=== PATIENT | female | born 1990 | race Caucasian/White ===

== ENCOUNTER 2017-11-11 10:32 | Emergency (ER) | payer MEDICAID, SELFPAY ==
[2017-11-11 10:32] VITALS: BP 131/95; PULSE 85; RESP 16; TEMP 37.3; O2SAT 98; BMI 24.7
--- NOTE | 2017-11-11 11:10 | ED.VISSUMM ---
- ER Visit Summary Date of Service: 11/11/17 Chief Complaint: [] Laceration to back History of Present Illness: The patient is a 27 F [] complaining of laceration to the right back/scapular area after slipping and falling in the bathroom at a local hotel. She reportedly grabbed the shower curtain to brace herself and pulled down the curtain kimberly that struck her in the back causing a laceration. She denies any other injury at this time. She is tearful in the room. Physical Examination: [] 4 cm full-thickness laceration to the right scapula area of the back. No bony tenderness below. Remainder of physical exam is unremarkable. Test Results: [] None. Emergency Department Course and Treatment: [] Patient had the area cleaned with saline and Shur-Clens. Anesthetized locally with 1% lidocaine. #3 4.0 nylon sutures were utilized to approximate the wound. Patient tolerated the procedure well. Patient reports her tetanus is up-to-date. Treatment Plan: [] Follow-up with PCP or emergency department for suture removal in 10 days. Disposition: [] Discharge, stable. Impression: [] Laceration repair, 4 cm Laceration repair by ED physician This note was generated with [employer] dictation software. It may contain incorrect words, spelling, and punctuation that were not noted in review of the chart prior to signing ED Disposition - Plan for ED Patient: Chief Complaint: Laceration Referrals: Care Physician,No Primary [Primary Care Provider] -
--- NOTE | 2017-11-11 11:18 | ED.DEP ---
ED Disposition - Plan for ED Patient: Disposition: Home or Assisted Living Chief Complaint: Laceration Instructions: ED Laceration All Referrals: Care Physician,No Primary [Primary Care Provider] - Additional Instructions: Have sutures removed in 10 days.
== END 2017-11-11 11:27 | disposition home or self-care (01) ==
PROVIDERS: Emergency Provider Emergency Medicine
DX: S41.011A Laceration without foreign body of right shoulder, initial encounter (principal); W01.0XXA Fall on same level from slipping, tripping and stumbling without subsequent striking against object, initial encounter; Y93.9 Activity, unspecified; Y92.59 Other trade areas as the place of occurrence of the external cause
CPT/HCPCS: 12002; 99284

== ENCOUNTER → 2018-05-30 13:35 | Outpatient (CLI) | payer MEDICAID, SELFPAY ==
[2018-05-30 15:22] LABS: Absolute Lymphocyte Count 1.57 X10^3/ul (0.83-4.51); Absolute Neutrophil Count 3.9 X10^3/uL (2.0-7.7); Basophil# 0.02 X10^3/uL; Basophil% 0.3 % (0-1); Eosinophil# 0.02 X10^3/uL; Eosinophils% 0.3 % (0-5); Hematocrit 43.9 % (37-47); Hemoglobin 14.1 g/dl (12.0-15.0); Lymphocyte # 1.57 X10^3/ul (4.0); Lymphocyte % 26.3 % (19-41); Mean Corp Hgb Conc 32.1 g/gl (32-36); Mean Corpuscular Hgb 31.3 pg (27.0-32.0); Mean Corpuscular Volume 97.6 fL (81-99); Mean Platelet Vol. 11.5 fl (6.2-12.0); Monocyte# 0.48 X10^3/uL; Neutrophil # 3.88 X10^3/uL (2.7-7.7); Neutrophil % 64.9 % (47-70); POSITIVE COUNT NO; POSITIVE DIFFERENTIAL NO; POSITIVE MORPHOLOGY NO; Platelet Count 255 K/mm3 (150-450); RBC Distribution Width SD 48.2 fl (35.1-43.9)
[2018-05-30 16:09] LABS: ALB/GLOB Ratio 0.8 RATIO (0.9-2.4); AST(SGOT) 18 U/L (15-37); Alanine Aminotransfer ALT/SGPT 47 U/L (13-56); Albumin, Serum 3.8 g/dL (3.2-5.0); Alkaline Phosphatase 90 U/L (45-117); Anion Gap 9 (5-15); BUN 15 mg/dL (7-18); BUN/Creat Ratio 18.9 RATIO (10-20); Calcium,Total 9.5 mg/dL (8.5-10.1); Chloride 105 mmol/L (98-107); Creatinine, Serum 0.79 mg/dL (0.55-1.02); EST Glomerular Filtration Rate 92 mL/min (>60); Est Glom Filt Rate - Afr Amer 111 mL/min (>60); Globulin 4.8 g/dL (2.2-4.2); Glucose 62 mg/dL (74-106); Magnesium 2.4 mg/dL (1.6-2.6); Potassium 3.4 mmol/L (3.5-5.1); Protein, Total 8.6 g/dL (6.4-8.2); Sodium Level 143 mmol/L (136-145); Thyroid Stim Hormone (TSH) 2.12 uIU/mL (0.358-3.74)
[2018-05-30 16:59] LABS: HIV - WCH Non-Reactive (Nonreactive)
== END ==
PROVIDERS: Referring Provider Nurse Practitioner Family; Visit Provider Nurse Practitioner Family
DX: R00.2 Palpitations (principal); F19.10 Other psychoactive substance abuse, uncomplicated; B19.20 Unspecified viral hepatitis C without hepatic coma
CPT/HCPCS: 36415; 80053; 83735; 84443; 85025; 86703; 93225; 93226

== ENCOUNTER → 2019-06-16 13:02 | Outpatient (CLI) | payer MEDICAID, SELFPAY ==
[2019-06-16 13:48] LABS: Prothrombin Time (Protime)PT. 13.3 SECONDS (11.7-14.9)
[2019-06-16 15:18] LABS: HIV - WCH Non-Reactive (Nonreactive); Hepatitis B Surface Antibody Reactive; Hepatitis B Surface Antigen Non-Reactive (Nonreactive)
[2019-06-19 03:06] LABS: Comment 2b (.)
[2019-06-19 11:44] LABS: Hepatitis A AB, Total Negative (Negative); Hepatitis B Core Ab Total Positive (Negative); Hepatitis C Genotype 2b
== END ==
PROVIDERS: Referring Provider Internal Medicine Infectious Disease; Visit Provider Internal Medicine Infectious Disease
DX: B18.2 Chronic viral hepatitis C (principal)
CPT/HCPCS: 36415; 85610; 86703; 86704; 86706; 86708; 87340; 87902

== ENCOUNTER → 2019-07-11 14:31 | Outpatient (CLI) | payer MEDICAID, SELFPAY ==
[2018-05-30 09:56] VITALS: BMI 21.2
--- NOTE | 2019-07-11 14:35 | RAD_ITS ---
STUDY: X-RAY - CERVICAL SPINE REASON FOR EXAM: Female, 29 years old. Chronic neck pain. TECHNIQUE: 5 view(s) of the cervical spine were obtained. COMPARISON: None FINDINGS: Normal anterior atlantoaxial articulation. Normal odontoid process. There is straightening of the normal cervical lordosis. Normal vertebral bodies and endplates. Normal disc space heights. Normal visualized intervertebral neuroforamina. The soft tissue structures are unremarkable. There is no demonstrated fracture of the cervical spine. RAD/Cerv Spine 4 or 5 Views IMPRESSION: Straightening of the physiologic cervical lordosis which may be associated muscle spasm. Otherwise normal x-ray examination of the visualized cervical spine. Electronically Signed: Yin Watt MD at 1:49 EST , Service support ,
== END ==
PROVIDERS: Referring Provider Chiropractor; Visit Provider Chiropractor
DX: S13.4XXA Sprain of ligaments of cervical spine, initial encounter (principal)
CPT/HCPCS: 72050

== ENCOUNTER → 2019-07-14 14:12 | Outpatient (CLI) | payer MEDICAID, SELFPAY ==
[2018-05-30 09:56] VITALS: BMI 21.2
[2019-07-17 03:07] LABS: HCV Quant. RNA PCR 194000 IU/mL (.)
[2019-07-17 11:34] LABS: HCV log 10 5.288 (.)
== END ==
PROVIDERS: Referring Provider Internal Medicine Infectious Disease; Visit Provider Internal Medicine Infectious Disease
DX: B18.2 Chronic viral hepatitis C (principal)
CPT/HCPCS: 36415; 87522

== ENCOUNTER → 2019-09-16 09:15 | Outpatient (CLI) | payer MEDICAID, SELFPAY ==
--- NOTE | 2019-09-16 09:21 | EKG12_ITS ---
Test Reason : ROUTINE Blood Pressure : / mmHG Vent. Rate : 054 BPM Atrial Rate : 054 BPM P-R Int : 134 ms QRS Dur : 072 ms QT Int : 408 ms P-R-T Axes : 022 052 030 degrees QTc Int : 386 ms Sinus bradycardia Otherwise normal ECG No previous ECGs available Confirmed by TAY PRITCHETT ([id number]), metropolitan editor LEIGHANN CUEVAS ([id number]) on 09/18/2019 9:00:52 AM Referred By: [facility] Confirmed By:TAY PRITCHETT
== END ==
DX: I49.9 Cardiac arrhythmia, unspecified (principal)
CPT/HCPCS: 93005

== ENCOUNTER → 2019-09-23 09:39 | Outpatient (CLI) | payer MEDICAID, SELFPAY ==
[2018-05-30 09:56] VITALS: BMI 21.2
--- NOTE | 2019-09-23 09:41 | US_ITS ---
STUDY: ABDOMINAL ULTRASOUND - RIGHT UPPER QUADRANT REASON FOR VISIT: Female, 29 years old HEP C TECHNIQUE: Ultrasound evaluation of the right upper quadrant was performed with real-time and static saba-scale imaging. TECHNICAL QUALITY: Adequate. COMPARISON: None. FINDINGS: Liver: The liver measures 11.6 cm. There is increased echogenicity consistent with fatty infiltration. The bile ducts are within normal limits. There is hepatic color flow. The direction of portal flow is hepatopetal. There is no demonstrated mass lesion. Gallbladder: Normal distended gallbladder. The gallbladder wall measures 2.7 mm. There is a negative sonographic Johnston''s sign. There is no pericholecystic fluid. There are no gallstones. Common Bile Duct (C.B.D.): The common bile duct measures 3.3 mm. Pancreas: Normal size of the head, body and tail of the pancreas. There is normal echogenicity of the pancreas. There is no demonstrated pancreatic mass or cyst. Right Kidney: Normal size of the right kidney. The right kidney measures 9.4 cm x 5.1 cm x 5.2 cm. Normal renal cortex. The right cortex measures 1.3 cm. There is no demonstrated renal mass or cyst. There is no right hydronephrosis. US/Liver IMPRESSION: Fatty infiltration of the liver. Electronically Signed: Nilesh Pearce, at 13:23 EST , Service support ,
== END ==
DX: B18.2 Chronic viral hepatitis C (principal)
CPT/HCPCS: 76705

== ENCOUNTER 2019-10-11 21:44 | Emergency (ER) | payer MEDICAID, SELFPAY ==
[2019-10-11 21:45] VITALS: BP 111/67; PULSE 85; RESP 18; TEMP 37.6; O2SAT 99; BMI 24.9
--- NOTE | 2019-10-11 22:06 | RAD_ITS ---
STUDY: X-RAY CHEST REASON FOR EXAM: Female, 29 years old. SOB AND COUGH TECHNIQUE: PA and lateral views of the chest. COMPARISON: None. FINDINGS: The lungs are clear and expanded. There is no demonstrated pleural abnormality. Normal size heart. Normal mediastinum and geraldine. Normal visualized pulmonary arteries. Normal visualized aortic arch and descending thoracic aorta. Normal visualized thoracic spine. Normal visualized ribs, clavicles, and shoulders. Pectus excavatum deformity of the chest wall. There is no demonstrated abnormality of the visualized soft tissue structures of the upper abdomen. RAD/Chest PA and Lateral IMPRESSION: Normal x-ray examination of the chest. Electronically Signed: Gallo Lucas MD at 23:19 EST Tel , Service support ,
--- NOTE | 2019-10-11 22:12 | ED.VISSUMM ---
- ER Visit Summary Date of Service: 10/11/19 Chief Complaint: Shortness of breath History of Present Illness: The patient is a 29 F who presents with shortness of breath that is been getting worse throughout the day today. Patient states she feels like she is having wheezing in her chest. Patient states she is coughing up some green sputum. Patient states nothing makes this better or worse. Patient admits to subjective chills. Patient also admits to some recent rhinorrhea and a sore throat. Patient denies any nausea or vomiting. Patient does admit to a headache and back pain. Patient denies any sick contacts. Physical Examination: Vital signs are stable. Patient is afebrile. Patient is in no acute distress. Oral mucosa is pink and moist. Oropharynx is clear. Neck is supple. Trachea is midline. There is no JVD noted. Heart was regular rate and rhythm. Lungs show scattered rhonchi and mild expiratory wheeze. Abdomen is soft. Bowel sounds are normal. There is no tenderness. There is no rebound or guarding noted. Skin is warm dry. Cranial nerves II through XII are intact. There are no focal motor or sensory deficits noted. Test Results: PA and lateral chest x-ray was obtained. There is no acute cardiopulmonary process. This was interpreted by the radiologist and myself. Emergency Department Course and Treatment: Patient was given a DuoNeb aerosol here. Patient felt better on reevaluation. Patient was given an albuterol inhaler to go home with. Smoking cessation was discussed. Patient was instructed to follow-up with her primary care physician in 5 to 7 days. Patient understood and was agreeable with the plan. All questions were answered. Disposition: Discharge home Impression: Viral bronchitis This note was generated with [employer] dictation software. It may contain incorrect words, spelling, and punctuation that were not noted in review of the chart prior to signing ED Disposition - Plan for ED Patient: Disposition: Home or Assisted Living Diagnosis: Viral bronchitis Instructions: BRONCHITIS, No Antibiotic (Adult) Referrals: Nancy Torres [Primary Care Provider] - 5-7 Days
[2019-10-11 22:33] VITALS: PULSE 84; RESP 18
[2019-10-11] MEDS: Ipratropium/Albuterol Sulfate 3 ML AMPUL.NEB INHALATION (22:33)
[2019-10-11 23:51] VITALS: PULSE 67; RESP 15; TEMP 36.7; O2SAT 99
== END 2019-10-12 00:05 | disposition home or self-care (01) ==
PROVIDERS: Emergency Provider Emergency Medicine
DX: J20.8 Acute bronchitis due to other specified organisms (principal); F32.9 Major depressive disorder, single episode, unspecified; Z79.899 Other long term (current) drug therapy; F17.200 Nicotine dependence, unspecified, uncomplicated
CPT/HCPCS: 71046; 87804; 94640; 99282

== ENCOUNTER 2020-03-29 02:18 | Observation (INO) | payer MEDICAID, SELFPAY ==
[2020-03-29] VITALS (8 sets, daily range): BP systolic 98–140; BP diastolic 53–78; PULSE 49–100; RESP 14–18; TEMP 36.5–37.4; O2SAT 96–100; BMI 24.1; BMI 23.3
[2020-03-29 03:05] LABS: Absolute Lymphocyte Count 1.68 X10^3/uL (0.83-4.51); Absolute Neutrophil Count 2.7 X10^3/uL (2.0-7.7); Basophil# 0.03 X10^3/uL; Basophil% 0.6 % (0-1); Eosinophil# 0.01 X10^3/uL; Eosinophils% 0.2 % (0-5); Hematocrit 39.9 % (37-47); Lymphocyte # 1.68 X10^3/ul (4.0); Lymphocyte % 34.8 % (19-41); Mean Corp Hgb Conc 32.6 g/dL (32-36); Mean Corpuscular Hgb 30.9 pg (27.0-32.0); Mean Corpuscular Volume 94.8 fL (81-99); Mean Platelet Vol. 10.6 fl (6.2-12.0); Monocyte# 0.37 X10^3/uL; Monocyte% 7.7 % (0-10); NRBC Flagged by Analyzer 0 % (0-5); Neutrophil # 2.73 X10^3/uL (2.7-7.7); Neutrophil % 56.5 % (47-70); Platelet Count 313 K/mm3 (150-450); RBC Distribution Width CV 12.7 % (11.6-14.6); RBC Distribution Width SD 43.9 fl (35.1-43.9); Red Blood Count 4.21 M/mm3 (4.2-5.4); White Blood Count 4.8 K/mm3 (4.4-11.0)
[2020-03-29 03:06] LABS: Internal QC Validated? YES +Cl - CLEAR BKGD; Pregnancy, Serum, hCG Quali. NEGATIVE Negative
[2020-03-29 03:19] LABS: ALB/GLOB Ratio 0.8 RATIO (0.9-2.4); AST(SGOT) 19 U/L (15-37); Alanine Aminotransfer ALT/SGPT 26 U/L (13-56); Albumin, Serum 3.7 g/dL (3.2-5.0); Alkaline Phosphatase 77 U/L (45-117); Anion Gap 8 (5-15); BUN 10 mg/dL (7-18); BUN/Creat Ratio 13.9 RATIO (10-20); Calcium,Total 9.7 mg/dL (8.5-10.1); Chloride 108 mmol/L (98-107); Creatinine, Serum 0.72 mg/dL (0.55-1.02); EST Glomerular Filtration Rate 101 mL/min (>60); Est Glom Filt Rate - Afr Amer 122 mL/min (>60); Estimated Creatinine Clearance 95.37 ml/min; Globulin 4.6 g/dL (2.2-4.2); Glucose 101 mg/dL (74-106); Potassium 3.2 mmol/L (3.5-5.1); Protein, Total 8.3 g/dL (6.4-8.2); Sodium Level 140 mmol/L (136-145)
[2020-03-29 03:20] LABS: Amphetamine Urine VISTA POSITIVE (<1000 ng/mL); Barbiturate Urine VISTA NEGATIVE (< 200 ng/mL); Benzodiazepine Urine VISTA NEGATIVE (< 200 ng/mL); Cocaine Urine VISTA NEGATIVE (< 300 ng/mL); Ecstacy Urine VISTA NEGATIVE (< 500 ng/mL); Methadone Urine VISTA NEGATIVE (< 300 ng/mL); PCP Urine VISTA NEGATIVE (< 25 ng/mL); THC Urine VISTA NEGATIVE (< 50 ng/mL); Vista UDS pH Range 5
--- NOTE | 2020-03-29 03:24 | ED.VISSUMM ---
- ER Visit Summary Date of Service: 03/29/20 Chief Complaint: Detox from opiates History of Present Illness: The patient is a 36 F with no primary care physician. She reports that she has been using heroin off and on for 10 years. She went through rehab in February 2019 and was clean until February 2020. She has now been using heroin/fentanyl IV daily. Her last use was 12 hours ago. States that she is starting to feel like she is in withdrawal. She has chills and sweats. She denies any other complaints. Physical Examination: Vitals: Stable. Afebrile. General: Well-nourished and well-developed. Head: Normocephalic atraumatic. Neck: Supple, no lymphadenopathy. No JVD. Nontender. Cardiovascular: Regular rate and rhythm. No murmurs. Respiratory: No respiratory distress. Clear to auscultation bilaterally. Abdominal: Soft, nontender, nondistended, normal bowel sounds. No guarding, rebound, or peritoneal signs. Back: Nontender. Extremities: Nontender, no edema. Track guzman over her feet bilaterally. There is no erythema, warmth, induration, or fluctuance to suggest infection. Skin: Normal color, no rash. Neurologic: Alert and oriented ?3. Cranial nerves II through XII are intact. Normal strength and sensation. Psych: Normal affect. Test Results: CBC is normal. Chem-7 shows a potassium of 3.2 and chloride 108. LFTs show total protein of 8.3 and globulin 4.6. test is negative. Talk screen shows opiates and methamphetamine. Emergency Department Course and Treatment: Patient has rested comfortably while here. Treatment Plan: Patient was discussed with Dr. Esqueda. She will be admitted to the hospital for further evaluation treatment. Disposition: Admitted in stable condition. Impression: 1. Opiate withdrawal. This note was generated with [employer] dictation software. It may contain incorrect words, spelling, and punctuation that were not noted in review of the chart prior to signing ED Disposition - Plan for ED Patient: Referrals: Care Physician,No Primary [Primary Care Provider] -
--- NOTE | 2020-03-29 03:30 | PCM.HP.STD ---
Problem List (1) Intermittent palpitations Status: Chronic (2) Anxiety Status: Chronic (3) Tobacco abuse Status: Chronic (4) Polysubstance abuse Status: Chronic (5) Depression Status: Chronic (6) Hepatitis C Status: Chronic (7) Narcotic withdrawal Status: Acute History of Present Illness Date of Admission: 03/29/20 Chief Complaint: heroine withdrawal The patient is a 29 year old F with a significant history of hepatitis C and narcotic dependence who presented with narcotic withdrawal symptoms. She described her withdrawal symptoms as body aches, restlessness, restless legs, insomnia, and a feeling of something crawling on her body. Further she reports chills. Patient's drug of choice is heroin. She shoots heroin in her bilateral feet. She was in a drug withdrawal program in February 2019. She was clean thereafter. However about 2 months ago she relapsed. She uses about 1 g of heroin per day. Past Medical History Past Medical History (Chronic Problems): Chronic Problems (Last Reviewed 03/29/20 @ 05:[address] Jesus Esqueda MD) Intermittent palpitations (Chronic) Anxiety (Chronic) Tobacco abuse (Chronic) Polysubstance abuse (Chronic) Depression (Chronic) Hepatitis C (Chronic) Medical History: Medical History (Last Reviewed 03/29/20 @ 05:[address] Jesus Esqueda MD) Hepatitis C (Chronic) B19.20 Allergies No Known Allergies Allergy (Verified 03/29/20 02:24) Home Medications: Ambulatory Orders Medication Instructions Recorded Hydroxyzine Pamoate [Vistaril] 25 mg PO BID PRN PRN 03/29/20 Sertraline HCl [Zoloft] 50 mg PO QDAY 03/29/20 Surgical History: Surgical History (Last Reviewed 03/29/20 @ 05:[address] Jesus Esqueda MD) History of D&C Z98.890 2014 Smoking Status: Current every day smoker Tobacco Use: Cigarettes Drugs: Heroin - *Family History Maternal Family History: Family History (Last Reviewed 03/29/20 @ 05:[address] Jesus Esqueda MD) Grandmother Heart disease Paternal Family History: Family History (Last Reviewed 03/29/20 @ 05:[address] Jesus Esqueda MD) Grandmother Heart disease History Items: - - Patient does not know paternal medical history. Review of Systems Constitutional: Reports: Chills. Denies: Fever, Weight Change HEENT: Denies: Head Aches, Sinus Congestion, Sinus Drainage Cardiovascular: Denies: Chest Pain, Palpitations Respiratory: Denies: Cough, Shortness of breath at rest, Sputum production Gastrointestinal: Denies: Abdominal Pain, Nausea, Vomiting Genitourinary: Denies: Dysuria Musculoskeletal: Reports: Muscle pain. Denies: Joint Pain, Joint Tenderness Skin: Denies: Rash, Wounds Neurological: Denies: Numbness, Tingling, Focal weakness Psychiatric: Reports: Anxiety, Depression. Denies: Homicidal Ideations, Suicidal Ideations Hematologic/ Lymphatic: Denies: Easy Bruising, Easy Bleeding VTE Information - Inpt Only VTE Present on Admission: No VTE Mechan Device Prophylaxis: None VTE Pharm Prophylaxis ordered?: No Reason prophylaxis not ordered:: Treatment Not Indicated - Low risk, encouraged to ambulate. Patient Problems: Active and Suspected Problems (Last Reviewed 03/29/20 @ 05:[address] Jesus Esqueda MD) Narcotic withdrawal (Acute) - Physical Exam Vitals/I&O's: Vital Signs Temp Pulse Resp BP Pulse Ox 98.3 F 68 14 106/60 96 03/29/20 02:19 03/29/20 02:19 03/29/20 02:19 03/29/20 02:19 03/29/20 02:19 Weight: 61.8 kg Body Mass Index (BMI) 24.1 General: Alert, Oriented x3, Cooperative, - - Moving in bed repeatedly. HEENT: Atraumatic, PERRLA, EOMI, Normocephalic Neck: Supple, No JVD, Negative Carotid Bruits Lungs: Clear to auscultation, Normal air movement, No rhonchi, No wheeze, No rales Cardiovascular: Regular rate, Normal S1, Normal S2, No murmurs Abdomen: Bowel Sounds Present, Soft, Non Tender Extremities: No edema, Capillary Refill Less than 3 Seconds Skin: - - Needle track guzman on dorsal bilateral feet. Musculoskeletal: No Tenderness to Palpation of Joints or Extremities Neurological: Cranial nerves II-XII grossly intact Psych/Mental Status: Normal Affect, Appropriate Laboratory Results 03/29/20 02:35: WBC 4.8, RBC 4.21, Hgb 13.0, Hct 39.9, MCV 94.8, MCH 30.9, MCHC 32.6, RDW Std Deviation 43.9, RDW Coeff of Eamon 12.7, Plt Count 313, MPV 10.6, Immature Gran % (Auto) 0.200, Neut % (Auto) 56.5, Lymph % (Auto) 34.8, Murray % (Auto) 7.7, Eos % (Auto) 0.2, Baso % (Auto) 0.6, Absolute Neuts (auto) 2.7, Absolute Lymphs (auto) 1.68, Nucleated RBC % 0 03/29/20 02:35: Serum , Qual NEGATIVE 03/29/20 02:35: Sodium 140, Potassium 3.2 L, Chloride 108 H, Carbon Dioxide 24.0, Anion Gap 8, BUN 10, Creatinine 0.72, Estim Creat Clear Calc 95.37, Est GFR (MDRD) Af Amer 122, Est GFR (MDRD) Non-Af 101, BUN/Creatinine Ratio 13.9, Glucose 101, Calcium 9.7, Total Bilirubin 0.50, AST 19, ALT 26, Alkaline Phosphatase 77, Total Protein 8.3 H, Albumin 3.7, Globulin 4.6 H, Albumin/Globulin Ratio 0.8 L 03/29/20 02:35: Ethyl Alcohol 5.0 03/29/20 03:02: Urine Opiates Screen POSITIVE H, Urine Methadone Screen NEGATIVE, Ur Barbiturates Screen NEGATIVE, Ur Phencyclidine Scrn NEGATIVE, Ur Amphetamines Screen POSITIVE H, U Methamphetamin-MDMA NEGATIVE, U Benzodiazepines Scrn NEGATIVE, Urine Cocaine Screen NEGATIVE, U Cannabinoids Screen NEGATIVE, Ur Drug Screen Comment Assessment/Plan All Active Problems (Last Reviewed 03/29/20 @ 05:[address] Jesus Esqueda MD) Narcotic withdrawal (Acute) The patient is a 29 year old F with a significant history of hepatitis C and narcotic dependence who presented with narcotic withdrawal symptoms Narcotic dependence and withdrawal. Patient is in acute withdrawal with yawning and moving repeatedly in bed. Will start patient on Subutex with adjunctive medication. Depression and anxiety Zoloft continued. PRN Vistaril ordered. Tobacco abuse Counselled Declined nicotine patch. DVT Prophylaxis Low risk Encourage to ambulate Inpatient E&M: [id number] Init Hosp L3
[2020-03-29] MEDS: hydrOXYzine PAM 25 MG Capsule 50 MG PO ×3 (04:48→16:11)
[2020-03-29] MEDS: Dicyclomine 10 MG Capsule 20 MG PO ×3 (04:48→16:10)
[2020-03-29] MEDS: Methocarbamol 750 MG Tablet 1500 MG PO ×4 (04:48→22:15)
[2020-03-29] MEDS: cloNIDine HCl 0.1 MG Tablet PO ×3 (04:48→22:15)
[2020-03-29] MEDS: Buprenorphine HCl 2 MG TAB.SUBL SL ×3 (04:48→20:47)
[2020-03-29] MEDS: Gabapentin 300 MG Capsule PO ×2 (04:48→16:10)
[2020-03-29 08:43] LABS: Phosphorus 3.5 mg/dL (2.5-4.9)
[2020-03-29 08:50] LABS: Magnesium 2.3 mg/dL (1.6-2.6)
[2020-03-29] MEDS: Sertraline 50 MG Tablet PO (10:37)
--- NOTE | 2020-03-29 11:34 | ADDICTION ---
This singer songwriter met with patient in her room to complete ASAM, DUGLAS, DUDIT and MSE. Patient engaged appropraitely. Patient scheduled for followup with [facility] on 04/05/2020 for MAT and reengagement in services. Completed assessments and relevant paperwork to be faxed to .
--- NOTE | 2020-03-29 14:59 | CCHN_ITS ---
Hospitalist Note Seen and examined. 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 In summary, 29-year-old female admitted with acute opioid withdrawal symptoms. History of chronic hepatitis C. Usually IV fentanyl and heroin. Vitals in normal limit. No fever U tox positive of methamphetamine. Serum alcohol 4.0. Patient admits she drin ks alcohol, hard liquor occasionally.
[2020-03-29] MEDS: traZODone 100 MG Tablet PO (22:14)
[2020-03-30] MEDS: Buprenorphine HCl 2 MG TAB.SUBL SL ×3 (04:49→22:02)
[2020-03-30 04:55] VITALS: PULSE 54
[2020-03-30] MEDS: Gabapentin 300 MG Capsule PO (06:41)
[2020-03-30 08:57] VITALS: BP 107/66; PULSE 56; RESP 18; TEMP 36.9; O2SAT 100
[2020-03-30] MEDS: Sertraline 50 MG Tablet PO (09:00)
[2020-03-30] MEDS: hydrOXYzine PAM 25 MG Capsule 50 MG PO ×2 (09:05→16:33)
[2020-03-30] MEDS: cloNIDine HCl 0.1 MG Tablet PO ×2 (09:05→19:56)
[2020-03-30] MEDS: Methocarbamol 750 MG Tablet 1500 MG PO (09:06)
[2020-03-30 12:00] VITALS: BP 92/58; PULSE 50; RESP 18; TEMP 37.1; O2SAT 99
[2020-03-30] MEDS: Pramipexole Di-HCl 0.25 MG Tablet PO ×2 (12:31→22:02)
--- NOTE | 2020-03-30 13:26 | PCM.PN.HOSP ---
Patient Problems: Active and Suspected Problems (Last Reviewed 03/29/20 @ 05:[address] Jesus Esqueda MD) Narcotic withdrawal (Acute) Reason for Visit: Follow-up for opioid withdrawal syndrome Objective: Patient drowsy and lethargic. Complain of restless leg and anxiety. Denies history of restless leg syndrome Physical exam: General: Oriented x3, Cooperative. Drowsy and lethargic but answers questions appropriately HEENT: Atraumatic, PERRLA, EOMI, Normocephalic Oral: No Gingival or Mucosal Lesions/ Ulcerations Neck: Supple, No JVD, Negative Carotid Bruits Lungs: Air entry bilaterally equal in both lungs. No crepitation/rhonchi Cardiovascular: Regular rate, Regular Rhythm, Normal S1, Normal S2, No murmurs Abdomen: Bowel Sounds Present, Soft, Non Tender, Non-Distended : No renal angle tenderness. No suprapubic tenderness. Extremities: No edema, Capillary Refill Less than 3 Seconds Skin: No rashes, No breakdown Musculoskeletal: No Tenderness to Palpation of Joints or Extremities. Could not keep the legs steady Neurological: Cranial nerves II-XII grossly intact, Deep Tendon Reflexes 2+/4 and Symmetrical, Neuro grossly intact Psych/Mental Status: Normal Affect, Appropriate. Vitals/I&O's: Vital Signs Temp Pulse Resp BP Pulse Ox 98.8 F 50 L 18 92/58 L 99 03/30/20 12:00 03/30/20 12:00 03/30/20 12:00 03/30/20 12:03/30/20 12:00 Oxygen Delivery Method Room Air Weight: 131 lb 6.328 oz Body Mass Index (BMI) 23.3 Intake and Output for Last 24 Hours 03/28/20 03/29/20 03/30/20 23:59 23:59 23:59 Intake Total 340 / 340 620 / 620 Balance 340 / 340 620 / 620 Current Medications Acetaminophen (Tylenol) 650 mg PO Q6H PRN PRN PRN Reason: Pain Score 1-10/Temp > 100.7 F Al Hydroxide/Mg Hydroxide (Mylanta Ii) 30 ml PO Q6H PRN PRN PRN Reason: dyspesia Alprazolam (Xanax) 0.25 mg PO TID PRN PRN PRN Reason: ANXIETY Bisacodyl (Dulcolax) 10 mg RECTAL DAILY PRN PRN Reason: Constipation Buprenorphine HCl (Buprenorphine Hcl) 2 mg SL Q8H JOSSELINE; Taper Stop: 04/01/20 04:44 Last Admin: 03/30/20 12:31 Dose: 2 mg Documented by: Clonidine (Catapres) 0.1 mg PO Q8H PRN PRN PRN Reason: RESTLESSNESS Last Admin: 03/30/20 09:05 Dose: 0.1 mg Documented by: Dextrose (D50w Syringe) 0 gm IV X1 PRN; Protocol PRN Reason: Hypoglycemia Dicyclomine HCl (Bentyl) 20 mg PO Q6H PRN PRN PRN Reason: Abdominal Discomfort Last Admin: 03/29/20 16:10 Dose: 20 mg Documented by: Gabapentin (Neurontin) 300 mg PO Q8H PRN PRN PRN Reason: moderate to severe anxiety Last Admin: 03/30/20 06:41 Dose: 300 mg Documented by: Glucagon () 1 mg IM .X1 PRN PRN Reason: Hypoglycemia Hydroxyzine Pamoate (Vistaril Pamoate Capsule) 50 mg PO Q6H PRN PRN PRN Reason: mild anxiety Last Admin: 03/30/20 09:05 Dose: 50 mg Documented by: Ibuprofen (Motrin) 600 mg PO Q8H PRN PRN PRN Reason: Pain Score 1-10/10 Loperamide HCl (Imodium) 2 mg PO Q4H PRN PRN PRN Reason: LOOSE STOOLS Melatonin (Melatonin) 3 mg PO QHS PRN PRN PRN Reason: INSOMNIA Methocarbamol (Methocarbamol) 1,500 mg PO Q6H PRN PRN PRN Reason: MUSCLE SPASM Last Admin: 03/30/20 09:06 Dose: 1,500 mg Documented by: Nicotine (Nicoderm Cq (Pbkc)) 21 mg TRANSDERM. DAILY [facility] Last Admin: 03/30/20 09:07 Dose: Not Given Documented by: Ondansetron HCl (Zofran) 8 mg PO Q8H PRN PRN PRN Reason: NAUSEA Pramipexole Dihydrochloride (Mirapex) 0.25 mg PO TID [facility] Last Admin: 03/30/20 12:31 Dose: 0.25 mg Documented by: Senna (Senokot) 2 tablet PO QHS PRN PRN Reason: Constipation Sertraline HCl (Zoloft) 50 mg PO DAILY JOSSELINE Last Admin: 03/30/20 09:00 Dose: 50 mg Documented by: Trazodone HCl (Desyrel) 100 mg PO QHS PRN PRN PRN Reason: INSOMNIA Last Admin: 03/29/20 22:14 Dose: 100 mg Documented by: STROKE Vital Signs/Narrative: Vital Signs Temp Pulse Resp BP Pulse Ox 03/30/20 12:00 98.8 F 50 L 18 92/58 L 99 Medical Necessity - Tobacco Use Smoking Status: Current every day smoker Tobacco Use: Cigarettes Assessment/Plan All Active Problems (Last Reviewed 03/29/20 @ 05:[address] Jesus Esqueda MD) Narcotic withdrawal (Acute) The patient is a 29 year old F with a significant history of chronic hepatitis C and narcotic dependence who presented with narcotic withdrawal symptoms. Acute opioid withdrawal syndrome with history of chronic opioid use disorder: Patient uses IV fentanyl and Neurontin. On buprenorphine sublingual along with other supportive medications. Counseled to quit Chronic hepatitis C: Needs outpatient follow-up and management Depression anxiety on Zoloft Chronic smoking cigarettes/tobacco use: Patient declined nicotine patch. Advised quitting Restless leg probably is manifestation of opioid withdrawal: Mirapex added. DVT prophylaxis: Low risk encourage ambulation. Inpatient E&M: 44433 [facility] [[email or web address]] Hosp L2
[2020-03-30 16:00] VITALS: BP 94/49; PULSE 46; RESP 18; TEMP 36.9; O2SAT 100
[2020-03-30] MEDS: ALPRAZolam 0.25 MG Tablet PO (16:33)
[2020-03-30] MEDS: Ibuprofen 600 MG Tablet PO (16:33)
[2020-03-30 22:00] VITALS: BP 98/63; PULSE 68; RESP 16; TEMP 36.8; O2SAT 98
[2020-03-30] MEDS: traZODone 100 MG Tablet PO (22:06)
[2020-03-31 04:00] VITALS: BP 98/70; PULSE 54; RESP 16; TEMP 36.8; O2SAT 100
[2020-03-31 05:00] VITALS: PULSE 54
[2020-03-31] MEDS: Buprenorphine HCl 2 MG TAB.SUBL SL ×2 (05:02→17:26)
[2020-03-31] MEDS: Pramipexole Di-HCl 0.25 MG Tablet PO ×3 (05:03→21:25)
[2020-03-31] MEDS: hydrOXYzine PAM 25 MG Capsule 50 MG PO ×2 (10:06→21:25)
[2020-03-31] MEDS: Sertraline 50 MG Tablet PO (10:06)
[2020-03-31] MEDS: ALPRAZolam 0.25 MG Tablet PO (10:06)
[2020-03-31 10:12] VITALS: BP 100/61; PULSE 50; RESP 18; TEMP 36.8; O2SAT 99
--- NOTE | 2020-03-31 10:37 | PN_ITS ---
Patient Problems: Active and Suspected Problems (Last Reviewed 03/29/20 @ 05:[address] Jesus Esqueda MD) Narcotic withdrawal (Acute) Reason for Visit: Follow-up for acute opioid withdrawal. Objective: Seen and examined. Patient feels generalized weakness along with loss of appetite. Denies hallucination or delusion. No seizure. Physical exam General: Alert, Oriented x3, Cooperative HEENT: Atraumatic, PERRLA, EOMI, Normocephalic Oral: No Gingival or Mucosal Lesions/ Ulcerations Neck: Supple, No JVD, Negative Carotid Bruits Lungs: Air entry equal in bilateral lung bases. No crepitation/rhonchi Cardiovascular: Regular rate, Regular Rhythm, Normal S1, Normal S2, No murmurs Abdomen: Bowel Sounds Present, Soft, Non Tender, Non-Distended : No renal angle tenderness. No suprapubic tenderness. Extremities: No edema, Capillary Refill Less than 3 Seconds Skin: No rashes, No breakdown. Track guzman on bilateral antecubital regions and forearm Musculoskeletal: No Tenderness to Palpation of Joints or Extremities Neurological: Cranial nerves II-XII grossly intact, Deep Tendon Reflexes 2+/4 and Symmetrical, Neuro grossly intact Psych/Mental Status: Normal Affect, Appropriate. Vitals/I&O's: Vital Signs Temp Pulse Resp BP Pulse Ox 98.3 F 50 L 18 100/61 99 03/31/20 10:12 03/31/20 10:12 03/31/20 10:12 03/31/20 10:12 03/31/20 10:12 Oxygen Delivery Method Room Air Weight: 131 lb 6.328 oz Body Mass Index (BMI) 23.3 Intake and Output for Last 24 Hours 03/29/20 03/30/20 03/31/20 23:59 23:59 23:59 Intake Total 340 / 340 840 / 1340 700 / 700 Balance 340 / 340 840 / 1340 700 / 700 Current Medications Acetaminophen (Tylenol) 650 mg PO Q6H PRN PRN PRN Reason: Pain Score 1-10/Temp > 100.7 F Al Hydroxide/Mg Hydroxide (Mylanta Ii) 30 ml PO Q6H PRN PRN PRN Reason: dyspesia Alprazolam (Xanax) 0.25 mg PO TID PRN PRN PRN Reason: ANXIETY Last Admin: 03/31/20 10:06 Dose: 0.25 mg Documented by: Bisacodyl (Dulcolax) 10 mg RECTAL DAILY PRN PRN Reason: Constipation Buprenorphine HCl (Buprenorphine Hcl) 2 mg SL Q12H JOSSELINE; Taper Stop: 04/01/20 04:44 Last Admin: 03/31/20 05:02 Dose: 2 mg Documented by: Clonidine (Catapres) 0.1 mg PO Q8H PRN PRN PRN Reason: RESTLESSNESS Last Admin: 03/30/20 19:56 Dose: 0.1 mg Documented by: Dextrose (D50w Syringe) 0 gm IV X1 PRN; Protocol PRN Reason: Hypoglycemia Dicyclomine HCl (Bentyl) 20 mg PO Q6H PRN PRN PRN Reason: Abdominal Discomfort Last Admin: 03/29/20 16:10 Dose: 20 mg Documented by: Gabapentin (Neurontin) 300 mg PO Q8H PRN PRN PRN Reason: moderate to severe anxiety Last Admin: 03/30/20 06:41 Dose: 300 mg Documented by: Glucagon () 1 mg IM .X1 PRN PRN Reason: Hypoglycemia Hydroxyzine Pamoate (Vistaril Pamoate Capsule) 50 mg PO Q6H PRN PRN PRN Reason: mild anxiety Last Admin: 03/31/20 10:06 Dose: 50 mg Documented by: Ibuprofen (Motrin) 600 mg PO Q8H PRN PRN PRN Reason: Pain Score 1-10/10 Last Admin: 03/30/20 16:33 Dose: 600 mg Documented by: Loperamide HCl (Imodium) 2 mg PO Q4H PRN PRN PRN Reason: LOOSE STOOLS Melatonin (Melatonin) 3 mg PO QHS PRN PRN PRN Reason: INSOMNIA Methocarbamol (Methocarbamol) 1,500 mg PO Q6H PRN PRN PRN Reason: MUSCLE SPASM Last Admin: 03/30/20 09:06 Dose: 1,500 mg Documented by: Nicotine (Nicoderm Cq (Pbkc)) 21 mg TRANSDERM. DAILY JOSSELINE Last Admin: 03/31/20 10:06 Dose: Not Given Documented by: Ondansetron HCl (Zofran) 8 mg PO Q8H PRN PRN PRN Reason: NAUSEA Pramipexole Dihydrochloride (Mirapex) 0.25 mg PO TID [facility] Last Admin: 03/31/20 05:03 Dose: 0.25 mg Documented by: Senna (Senokot) 2 tablet PO QHS PRN PRN Reason: Constipation Sertraline HCl (Zoloft) 50 mg PO DAILY [facility] Last Admin: 03/31/20 10:06 Dose: 50 mg Documented by: Trazodone HCl (Desyrel) 100 mg PO QHS PRN PRN PRN Reason: INSOMNIA Last Admin: 03/30/20 22:06 Dose: 100 mg Documented by: STROKE Vital Signs/Narrative: Vital Signs Temp Pulse Resp BP Pulse Ox 03/31/20 10:12 98.3 F 50 L 18 100/61 99 Medical Necessity - Tobacco Use Smoking Status: Current every day smoker Tobacco Use: Cigarettes Assessment/Plan All Active Problems (Last Reviewed 03/29/20 @ 05:[address] Jesus Esqueda MD) Narcotic withdrawal (Acute) The patient is a 29 year old F with a significant history of chronic hepatitis C and narcotic dependence who presented with narcotic withdrawal symptoms. Acute opioid withdrawal syndrome with history of chronic opioid use disorder: Patient uses IV fentanyl and Neurontin. On buprenorphine sublingual along with other supportive medications. Counseled to quit 03/31: Patient encouraged to eat food. Patient had request for Cymbalta and buprenorphine prescription which was declined. Patient can have [id number] Atarax. Can take clonidine for opiate withdrawal. Chronic hepatitis C: Needs outpatient follow-up and management Depression anxiety on Zoloft Chronic smoking cigarettes/tobacco use: Patient declined nicotine patch. Advised quitting Restless leg probably is manifestation of opioid withdrawal: Mirapex added. DVT prophylaxis: Low risk encourage ambulation. Inpatient E&M: 70280 Subs Hosp L2
[2020-03-31 14:49] VITALS: BP 101/60; PULSE 50; RESP 18; TEMP 36.7; O2SAT 98
[2020-03-31] MEDS: Ibuprofen 600 MG Tablet PO (14:51)
[2020-03-31] MEDS: cloNIDine HCl 0.1 MG Tablet PO (14:51)
[2020-03-31 21:00] VITALS: BP 99/55; PULSE 43; RESP 16; TEMP 36.6; O2SAT 98
[2020-03-31] MEDS: traZODone 100 MG Tablet PO (21:25)
[2020-04-01 03:30] VITALS: BP 99/57; PULSE 47; RESP 14; TEMP 36.8; O2SAT 98
[2020-04-01] MEDS: Methocarbamol 750 MG Tablet 1500 MG PO (03:51)
[2020-04-01] MEDS: Gabapentin 300 MG Capsule PO (03:51)
[2020-04-01] MEDS: Pramipexole Di-HCl 0.25 MG Tablet PO (05:59)
[2020-04-01] MEDS: hydrOXYzine PAM 25 MG Capsule 50 MG PO (05:59)
[2020-04-01] MEDS: Dicyclomine 10 MG Capsule 20 MG PO (06:04)
[2020-04-01 09:02] VITALS: BP 105/68; PULSE 53; RESP 16; TEMP 36.8; O2SAT 98
--- NOTE | 2020-04-01 09:05 | PCM.DC ---
- Discharge Diagnoses Current Active Problems: Current Active and Chronic Problems (Last Reviewed 03/29/20 @ 05:[address] Jesus Esqueda MD) Narcotic withdrawal (Acute) You will use the following diet at home:: Regular Your food should be the consistency of: Regular Discharge Activity: May Not Drive Weight Bearing Status: Weight bearing as tolerated Call your doctor if your incision/area has: Continuous Slow Oozing, Sudden Increased Bleeding, Increased Pain/ Swelling Call your doctor if you observe: Fever of 101 or Higher, Coldness, Increased Pain, Numbness or Tingling, Inability to urinate, Inability to have a bowel movement, Using more than one pad per hour, Shortness of breath, Dizziness, Swelling in the ankles, Chest pain, Prolonged hiccoughing, Increased palpitations (irregular heartbeat), Calf discomfort, Uncontrolled pain Allergies/Adverse Reactions: Allergies No Known Allergies Allergy (Verified 03/29/20 02:24) Medications to take at Discharge Sertraline HCl [Zoloft] 50 mg PO QDAY 03/29/20 Clonidine HCl [Catapres] 0.1 mg PO Q12H PRN PRN #14 tab 04/01/20 Hydroxyzine Pamoate [Vistaril] 25 mg PO BID PRN PRN #20 cap 04/01/20 Ibuprofen [Motrin] 600 mg PO Q8H PRN PRN tab 04/01/20 Nicotine [Nicoderm Cq] 21 mg TRANSDERM. DAILY #30 patch 04/01/20 cycloBENZAPRine HCl [Flexeril] 10 mg PO TID PRN PRN #30 tab 04/01/20 The following prescriptions were given: Clonidine HCl [Catapres] 0.1 mg PO Q12H PRN PRN #14 tab PRN Reason: Restlessness Transmission Status: Pending to [facility] #30 cycloBENZAPRine HCl [Flexeril] 10 mg PO TID PRN PRN #30 tab PRN Reason: muscle spasm Transmission Status: Pending to [facility] #30 Nicotine [Nicoderm Cq] 21 mg TRANSDERM. DAILY #30 patch Transmission Status: Pending to [facility] #30 Hydroxyzine Pamoate [Vistaril] 25 mg PO BID PRN PRN #20 cap PRN Reason: Anxiety Transmission Status: Pending to [facility] #30 Primary Care Physician: Care Physician,No Primary [Primary Care Provider] - Please follow up with your Primary Care Physician in: IN 1 WEEK Test Results: Test results from this visit will be discussed in further detail at your follow-up appointment, if applicable. Please Follow Up With: Lori Montaño DO When: ON 04/05/2020
--- NOTE | 2020-04-01 09:13 | DS.PCM_ITS ---
Discharge Date and Diagnosis - Problem List Patient Problems: Active and Suspected Problems (Last Reviewed 03/29/20 @ 05:[address] Jesus Esqueda MD) Narcotic withdrawal (Acute) Date of Admission: 03/29/20 Date of Discharge: 04/01/20 - Primary Discharge Diagnosis Acute Problems: Active Problems (Last Reviewed 03/29/20 @ 05:[address] Jesus Esqueda MD) Narcotic withdrawal (Acute) - Secondary Discharge Diagnosis Chronic Problems: Chronic Problems (Last Reviewed 03/29/20 @ 05:[address] Jesus Esqueda MD) Intermittent palpitations (Chronic) Anxiety (Chronic) Tobacco abuse (Chronic) Polysubstance abuse (Chronic) Depression (Chronic) Hepatitis C (Chronic) Hospital Course and Treatment Summary of Care Provided: [] The patient is a 29 year old F with a significant history of chronic hepatitis C and narcotic dependence who presented with narcotic withdrawal symptoms. Acute opioid withdrawal syndrome with history of chronic opioid use disorder: Patient uses IV fentanyl and Neurontin. On buprenorphine sublingual along with other supportive medications. Counseled to quit Patient had request for Cymbalta and buprenorphine prescription which was declined. Prescription given for Flexeril, hydroxyzine, clonidine and nicotine patch. Patient has follow-up with Dr. cheng on 04/05/2020 Chronic hepatitis C: Needs outpatient follow-up and management Depression anxiety on Zoloft Chronic smoking cigarettes/tobacco use: Advised quitting Restless leg probably is manifestation of opioid withdrawal: Mirapex added. DVT prophylaxis: Low risk encourage ambulation. Discharge medication reconciliation done. Discharge follow-up instructions completed. Discharge process discussed with the patient and all questions were answered to patient's satisfaction. Total time spent, exact 35 minutes on discharge meds reconciliation, examination, coordination of care with nurses and ancillary staff, review of imaging and blood test and discussion with the patient on follow-up instructions Patient Problems: Active and Suspected Problems (Last Reviewed 03/29/20 @ 05:[address] Jesus Esqueda MD) Narcotic withdrawal (Acute) Objective: Patient symptoms are controlled. She requested for prescription for hydroxyzine, muscle relaxant, clonidine for control of withdrawal symptoms. Physical exam General: Alert, Oriented x3, Cooperative HEENT: Atraumatic, PERRLA, EOMI, Normocephalic Oral: No Gingival or Mucosal Lesions/ Ulcerations Neck: Supple, No JVD, Negative Carotid Bruits Lungs: Air entry equal in bilateral lung bases. No crepitation/rhonchi Cardiovascular: Regular rate, Regular Rhythm, Normal S1, Normal S2, No murmurs Abdomen: Bowel Sounds Present, Soft, Non Tender, Non-Distended : No renal angle tenderness. No suprapubic tenderness. Extremities: No edema, Capillary Refill Less than 3 Seconds Skin: No rashes, No breakdown. Needle track guzman on the bilateral forearm Musculoskeletal: No Tenderness to Palpation of Joints or Extremities Neurological: Cranial nerves II-XII grossly intact, Deep Tendon Reflexes 2+/4 and Symmetrical, Neuro grossly intact Psych/Mental Status: Normal Affect, Appropriate. - Physical Exam Vitals/I&O's: Vital Signs Temp Pulse Resp BP Pulse Ox 98.3 F 53 L 16 105/68 98 04/01/20 09:02 04/01/20 09:02 04/01/20 09:02 04/01/20 09:02 04/01/20 09:02 Oxygen Delivery Method Room Air Weight: 131 lb 6.328 oz Body Mass Index (BMI) 23.3 Intake and Output for Last 24 Hours 03/30/20 03/31/20 04/01/20 23:59 23:59 23:59 Intake Total 840 / 1340 1959 / 1959 300 / 300 Balance 840 / 1340 1959 / 1959 300 / 300 Current Medications Acetaminophen (Tylenol) 650 mg PO Q6H PRN PRN PRN Reason: Pain Score 1-10/Temp > 100.7 F Al Hydroxide/Mg Hydroxide (Mylanta Ii) 30 ml PO Q6H PRN PRN PRN Reason: dyspesia Alprazolam (Xanax) 0.25 mg PO TID PRN PRN PRN Reason: ANXIETY Last Admin: 03/31/20 10:06 Dose: 0.25 mg Documented by: Bisacodyl (Dulcolax) 10 mg RECTAL DAILY PRN PRN Reason: Constipation Clonidine (Catapres) 0.1 mg PO Q8H PRN PRN PRN Reason: RESTLESSNESS Last Admin: 03/31/20 14:51 Dose: 0.1 mg Documented by: Dextrose (D50w Syringe) 0 gm IV X1 PRN; Protocol PRN Reason: Hypoglycemia Dicyclomine HCl (Bentyl) 20 mg PO Q6H PRN PRN PRN Reason: Abdominal Discomfort Last Admin: 04/01/20 06:04 Dose: 20 mg Documented by: Gabapentin (Neurontin) 300 mg PO Q8H PRN PRN PRN Reason: moderate to severe anxiety Last Admin: 04/01/20 03:51 Dose: 300 mg Documented by: Glucagon () 1 mg IM .X1 PRN PRN Reason: Hypoglycemia Hydroxyzine Pamoate (Vistaril Pamoate Capsule) 50 mg PO Q6H PRN PRN PRN Reason: mild anxiety Last Admin: 04/01/20 05:59 Dose: 50 mg Documented by: Ibuprofen (Motrin) 600 mg PO Q8H PRN PRN PRN Reason: Pain Score 1-10/10 Last Admin: 03/31/20 14:51 Dose: 600 mg Documented by: Loperamide HCl (Imodium) 2 mg PO Q4H PRN PRN PRN Reason: LOOSE STOOLS Melatonin (Melatonin) 3 mg PO QHS PRN PRN PRN Reason: INSOMNIA Methocarbamol (Methocarbamol) 1,500 mg PO Q6H PRN PRN PRN Reason: MUSCLE SPASM Last Admin: 04/01/20 03:51 Dose: 1,500 mg Documented by: Nicotine (Nicoderm Cq (Pbkc)) 21 mg TRANSDERM. DAILY [facility] Last Admin: 03/31/20 10:06 Dose: Not Given Documented by: Ondansetron HCl (Zofran) 8 mg PO Q8H PRN PRN PRN Reason: NAUSEA Pramipexole Dihydrochloride (Mirapex) 0.25 mg PO TID [facility] Last Admin: 04/01/20 05:59 Dose: 0.25 mg Documented by: Senna (Senokot) 2 tablet PO QHS PRN PRN Reason: Constipation Sertraline HCl (Zoloft) 50 mg PO DAILY [facility] Last Admin: 03/31/20 10:06 Dose: 50 mg Documented by: Trazodone HCl (Desyrel) 100 mg PO QHS PRN PRN PRN Reason: INSOMNIA Last Admin: 03/31/20 21:25 Dose: 100 mg Documented by: Discharge Activity: May Not Drive Weight Bearing Status: Weight bearing as tolerated Call your doctor if your incision/area has: Continuous Slow Oozing, Sudden Increased Bleeding, Increased Pain/ Swelling Call your doctor if you observe: Fever of 101 or Higher, Coldness, Increased Pain, Numbness or Tingling, Inability to urinate, Inability to have a bowel movement, Using more than one pad per hour, Shortness of breath, Dizziness, Swelling in the ankles, Chest pain, Prolonged hiccoughing, Increased palpitations (irregular heartbeat), Calf discomfort, Uncontrolled pain Home Medications: Medications to take at Discharge Sertraline HCl [Zoloft] 50 mg PO QDAY 03/29/20 Clonidine HCl [Catapres] 0.1 mg PO Q12H PRN PRN #14 tab 04/01/20 Hydroxyzine Pamoate [Vistaril] 25 mg PO BID PRN PRN #20 cap 04/01/20 Ibuprofen [Motrin] 600 mg PO Q8H PRN PRN tab 04/01/20 Nicotine [Nicoderm Cq] 21 mg TRANSDERM. DAILY #30 patch 04/01/20 cycloBENZAPRine HCl [Flexeril] 10 mg PO TID PRN PRN #30 tab 04/01/20 Following Prescrptions Were Given to Patient: Clonidine HCl [Catapres] 0.1 mg PO Q12H PRN PRN #14 tab PRN Reason: Restlessness Transmission Status: Received by [facility] #30 cycloBENZAPRine HCl [Flexeril] 10 mg PO TID PRN PRN #30 tab PRN Reason: muscle spasm Transmission Status: Received by [facility] #30 Nicotine [Nicoderm Cq] 21 mg TRANSDERM. DAILY #30 patch Transmission Status: Received by [facility] #30 Hydroxyzine Pamoate [Vistaril] 25 mg PO BID PRN PRN #20 cap PRN Reason: Anxiety Transmission Status: Received by [facility] #30 Primary Care Physician: Care Physician,No Primary [Primary Care Provider] - Please follow up with your Primary Care Physician in: IN 1 WEEK Please Follow Up With: Lori Cheng DO When: ON 04/05/2020 Medical Necessity - Tobacco Use Smoking Status: Current every day smoker Tobacco Use: Cigarettes Meaningful Use Info Meaningful Use Diagnoses (Choose all that apply): None applicable Inpatient E&M: 47551 [facility]
[2020-04-01] MEDS: Sertraline 50 MG Tablet PO (09:25)
== END 2020-04-01 09:55 | disposition home or self-care (01) | DRG 773 ==
LOC: ED 02:50 → MS3 04:48
PROVIDERS: Admitting Provider Hospitalist; Emergency Provider Emergency Medicine; Visit Provider Internal Medicine
DX: F11.23 Opioid dependence with withdrawal (principal); B18.2 Chronic viral hepatitis C; F41.9 Anxiety disorder, unspecified; F32.9 Major depressive disorder, single episode, unspecified; F17.210 Nicotine dependence, cigarettes, uncomplicated; Z79.899 Other long term (current) drug therapy
CPT/HCPCS: 80053; 80307; 80320; 83735; 84100; 84703; 85025; 99283; 99406; H0012; G0480

== ENCOUNTER 2020-12-13 09:03 | Emergency (ER) | payer MEDICAID, SELFPAY ==
[2020-03-29 04:11] VITALS: BMI 23.3
[2020-12-13 09:06] VITALS: BP 141/70; PULSE 97; RESP 16; TEMP 36.4; O2SAT 93; BMI 23.9
--- NOTE | 2020-12-13 09:28 | ED.DCSUM_ITS ---
History of Present Illness Chief Complaint: Substance Abuse Informant: Patient Onset: Hours - 36 or so Context: Gradual Onset Timing: Continuous Quality: pain Location: all over Current Severity: Severe Maximum Severity: Severe Worsened by: taking suboxone/subzolve Relieved by: nothing Narrative: 30-year-old heroin addict states that she stopped using 3 days ago and wants to be clean, she started going into withdrawal so she got 2 doses of Suboxone 8 mg and 1 dose of Subzolve 16 mg, split them in half, and over the last 2 nights has been taking the half doses every couple hours trying to get through the withdrawal. She states every time she took 1 she felt worse and feels like they are precipitating her withdrawal. She wants to stop using heroin she does not use other substances that she is admitting to at this time. She feels like there is ice all over her body and it hurts and is tingly, nonlateralizing. Abdominal cramping, nausea, some diarrhea, she is getting goosebumps, feels very restless and anxious. No suicidality. Denies any recent illness prior to this. - Past Medical History (1) Anxiety Status: Chronic (2) Depression Status: Chronic (3) Hepatitis C Status: Chronic (4) Polysubstance abuse Status: Chronic Past Medical History - Allergies and Home Meds Allergies/Adverse Reactions: Allergies No Known Allergies Allergy (Verified 12/13/20 09:06) Primary Care Physician: Care Physician,No Primary [Primary Care Provider] - Smoking Status: Current every day smoker Drugs: Heroin - Family History Paternal Family History: Family History (Last Reviewed 03/29/20 @ 05:[address] Jesus Esqueda MD) Grandmother Heart disease Family History: Reports: - - Patient does not know paternal medical history. Review of Systems General: Reports: Malaise. Denies: Chills, Fever, Sweats Eyes: Denies: Visual changes - bilaterally, Diplopia ENT: Denies: Rhinorrhea, Sore throat Cardiovascular: Denies: Chest pain, Palpitations Respiratory: Denies: Dyspnea, Cough, Dyspnea on exertion Gastrointestinal: Reports: Abdominal pain, Nausea, Diarrhea. Denies: Vomiting, Melena, Hematochezia Genitourinary: Denies: Dysuria, Hematuria, Frequency Musculoskeletal: Reports: Myalgias. Denies: Back pain, Extremity Pain Skin: Denies: Rash, Wounds Neurological: Reports: Parasthesia. Denies: Headache, Weakness, Numbness Physical Exam Vital Signs/Narrative: Vital Signs Temp Pulse Resp BP Pulse Ox 12/13/20 09:06 97.5 F L 97 16 141/70 H 93 Inital Vital Signs reviewed: Yes General: Well nourished, Well developed, No Acute Distress - Uncomfortable and anxious Head: Normocephalic, Atraumatic Eyes: Perrl, EOMI ENT: Moist mucous membranes, No rhinorrhea Neck: Supple, Nontender, No lymphadenopathy Cardiovascular: Regular rate, Regular rhythm, No murmurs. Negative for: Tachycardia Respiratory: No distress, CTA bilaterally, Chest nontender Abdomen: Soft, Nontender, Nondistended, Normal bowel sounds Back: Nontender, Normal Inspection Extremities: Nontender, No edema. Negative for: Calf Tenderness Skin: Normal color, No rash, No Trauma, - - Piloerection present Neurological: Alert, Oriented x3, Cranial nerves II-XII grossly intact, Normal Strength, Normal Sensation Psychological: - - Anxious. Cooperative. Diagnostic/Tx/Re-eval Laboratory Tests 12/13/20 12/13/20 Range/Units 10:00 10:00 WBC 4.7 (4.4-11.0) K/mm3 RBC 4.53 (4.2-5.4) M/mm3 Hgb 14.0 (12.0-15.0) g/dL Hct 42.1 (37-47) % MCV 92.9 (81-99) fL MCH 30.9 (27.0-32.0) pg MCHC 33.3 (32-36) g/dL RDW Std Deviation 45.3 H (35.1-43.9) fl RDW Coeff of Eamon 13.2 (11.6-14.6) % Plt Count 260 (150-450) K/mm3 MPV 10.1 (6.2-12.0) fl Immature Gran % (Auto) 0.400 (0.0-0.9) % Neut % (Auto) 73.7 H (47-70) % Lymph % (Auto) 21.7 (19-41) % [place] % (Auto) 3.8 (0-10) % Eos % (Auto) 0.0 (0-5) % Baso % (Auto) 0.4 (0-1) % Absolute Neuts (auto) 3.5 (2.0-7.7) X10^3/uL Absolute Lymphs (auto) 1.02 (0.83-4.51) X10^3/uL Nucleated RBC % 0 (0-5) % Sodium 140 (136-145) mmol/L Potassium 3.6 (3.5-5.1) mmol/L Chloride 108 H (98-107) mmol/L Carbon Dioxide 27.0 (21.0-32.0) mmol/L Anion Gap 5 (5-15) BUN 13 (7-18) mg/dL Creatinine 0.73 (0.55-1.02) mg/dL Estim Creat Clear Calc 93.22 ml/min Est GFR (MDRD) Af Amer 120 (>60) mL/min Est GFR (MDRD) Non-Af 99 (>60) mL/min BUN/Creatinine Ratio 17.8 (10-20) RATIO Glucose 104 (74-106) mg/dL Calcium 9.7 (8.5-10.1) mg/dL Total Bilirubin 0.60 (0.20-1.00) mg/dL AST 40 H (15-37) U/L ALT 68 H (13-56) U/L Alkaline Phosphatase 82 (45-117) U/L Total Protein 8.3 H (6.4-8.2) g/dL Albumin 4.0 (3.2-5.0) g/dL Globulin 4.3 H (2.2-4.2) g/dL Albumin/Globulin Ratio 0.9 (0.9-2.4) RATIO - Medical Decision Making Patient was given clonidine and tramadol for her symptoms. Plan is for medical clearance and admission for detox, which the patient is wanting. Upon trying admit the patient, she then states that she does not want Suboxone which is the primary goal of admitting people to detox here, inducing on Suboxone. She was given the choice to be admitted overnight to give her the same medications that I would be willing to prescribe her 2 days worth to use at home. She chooses to go home and follow-up with 180 which she was advised to do soon as possible compensation administrator today. She is agreeable. ED Disposition - Plan for ED Patient: Disposition: Home or Assisted Living Diagnosis: Opiate dependence, Opiate withdrawal Instructions: ED Opioid Withdrawal Prescriptions: Clonidine HCl 0.1 mg PO Q12H PRN 2 Days #4 tablet PRN Reason: opiate withdrawal Transmission Status: Pending to [facility] #30 traMADol [Ultram] 1 - 2 tab PO Q6H PRN 2 Days #14 tablet PRN Reason: Pain Transmission Status: Sent to [facility] #30 Referrals: [facility] [STAFF PHYSICIAN] - As soon as possible
[2020-12-13 10:09] LABS: Absolute Lymphocyte Count 1.02 X10^3/uL (0.83-4.51); Absolute Neutrophil Count 3.5 X10^3/uL (2.0-7.7); Basophil# 0.02 X10^3/uL; Basophil% 0.4 % (0-1); Hematocrit 42.1 % (37-47); Lymphocyte # 1.02 X10^3/ul (4.0); Lymphocyte % 21.7 % (19-41); Mean Corp Hgb Conc 33.3 g/dL (32-36); Mean Corpuscular Hgb 30.9 pg (27.0-32.0); Mean Corpuscular Volume 92.9 fL (81-99); Mean Platelet Vol. 10.1 fl (6.2-12.0); Monocyte# 0.18 X10^3/uL; Monocyte% 3.8 % (0-10); NRBC Flagged by Analyzer 0 % (0-5); Neutrophil # 3.46 X10^3/uL (2.7-7.7); Neutrophil % 73.7 % (47-70); Platelet Count 260 K/mm3 (150-450); RBC Distribution Width CV 13.2 % (11.6-14.6); RBC Distribution Width SD 45.3 fl (35.1-43.9); Red Blood Count 4.53 M/mm3 (4.2-5.4); White Blood Count 4.7 K/mm3 (4.4-11.0)
[2020-12-13 10:24] LABS: ALB/GLOB Ratio 0.9 RATIO (0.9-2.4); AST(SGOT) 40 U/L (15-37); Alanine Aminotransfer ALT/SGPT 68 U/L (13-56); Alkaline Phosphatase 82 U/L (45-117); Anion Gap 5 (5-15); BUN 13 mg/dL (7-18); BUN/Creat Ratio 17.8 RATIO (10-20); Calcium,Total 9.7 mg/dL (8.5-10.1); Chloride 108 mmol/L (98-107); Creatinine, Serum 0.73 mg/dL (0.55-1.02); EST Glomerular Filtration Rate 99 mL/min (>60); Est Glom Filt Rate - Afr Amer 120 mL/min (>60); Estimated Creatinine Clearance 93.22 ml/min; Globulin 4.3 g/dL (2.2-4.2); Glucose 104 mg/dL (74-106); Potassium 3.6 mmol/L (3.5-5.1); Protein, Total 8.3 g/dL (6.4-8.2); Sodium Level 140 mmol/L (136-145)
[2020-12-13] MEDS: Ondansetron ODT 4 MG Tablet 8 MG PO (10:30)
[2020-12-13] MEDS: cloNIDine HCl 0.2 MG Tablet PO (10:31)
[2020-12-13] MEDS: traMADol 50 MG Tablet 100 MG PO (10:31)
--- NOTE | 2020-12-13 10:36 | NURSING ---
DR BOURGEOIS FOR DR LEWIS
[2020-12-13 10:47] LABS: Alcohol, Blood (Medical)-Serum < 3.0 mg/dL
--- NOTE | 2020-12-13 10:48 | ED.RN ---
pt refuses to sign contract. statesw I am leaving I don't want treatment. I got meds
[2020-12-13 11:11] LABS: Pregnancy, Serum, hCG Quali. NEGATIVE Negative (0-9 Nonpreg)
[2020-12-13 11:12] LABS: Amphetamine Urine VISTA NEGATIVE (<1000 ng/mL); Barbiturate Urine VISTA NEGATIVE (< 200 ng/mL); Benzodiazepine Urine VISTA NEGATIVE (< 200 ng/mL); Cocaine Urine VISTA NEGATIVE (< 300 ng/mL); Ecstacy Urine VISTA NEGATIVE (< 500 ng/mL); Methadone Urine VISTA NEGATIVE (< 300 ng/mL); PCP Urine VISTA NEGATIVE (< 25 ng/mL); THC Urine VISTA NEGATIVE (< 50 ng/mL); Vista UDS pH Range 7
[2020-12-13 11:12] LABS: Internal QC Validated? YES +Cl - CLEAR BKGD
== END 2020-12-13 11:27 | disposition home or self-care (01) ==
PROVIDERS: Emergency Provider Emergency Medicine
DX: F11.23 Opioid dependence with withdrawal (principal); F17.200 Nicotine dependence, unspecified, uncomplicated
CPT/HCPCS: 80053; 80307; 82077; 84703; 85025; 99283; A4216

== ENCOUNTER 2022-03-08 20:30 | Inpatient (IN) | payer MEDICAID, SELFPAY ==
[2022-03-08] VITALS (12 sets, daily range): BP systolic 104–126; BP diastolic 51–76; PULSE 67–109; TEMP 36.4–36.6; O2SAT 89–100; BMI 32.3
[2022-03-08 20:30] LABS: ROM Internal Control Test YES-OK TO RESULT pt. (Internal QC); ROM Patient Test POSITIVE (Negative)
[2022-03-08] MEDS: LACTATED RINGERS 500 ML 999 ML IV (21:25)
[2022-03-08] MEDS: Lactated Ringers 1,000 ML 200 ML IV (21:56)
[2022-03-08 22:26] LABS: Absolute Lymphocyte Count 1.11 X10^3/uL (0.83-4.51); Basophil# 0.01 X10^3/uL; Basophil% 0.1 % (0-1); Hematocrit 35.7 % (37-47); Hemoglobin 11.3 g/dL (12.0-15.0); Lymphocyte # 1.11 X10^3/ul (0.83-4.51); Lymphocyte % 10.4 % (19-41); Mean Corp Hgb Conc 31.7 g/dL (32-36); Mean Corpuscular Hgb 27.9 pg (27.0-32.0); Mean Corpuscular Volume 88.1 fL (81-99); Mean Platelet Vol. 10.6 fl (6.2-12.0); Monocyte# 0.46 X10^3/uL; Monocyte% 4.3 % (0-10); NRBC Flagged by Analyzer 0 % (0-5); Neutrophil # 9.04 X10^3/uL (2.7-7.7); Neutrophil % 84.7 % (47-70); POSITIVE COUNT YES; Platelet Count 247 K/mm3 (150-450); RBC Distribution Width CV 14.3 % (11.6-14.6); RBC Distribution Width SD 45.8 fl (35.1-43.9); Red Blood Count 4.05 M/mm3 (4.2-5.4); White Blood Count 10.7 K/mm3 (4.4-11.0)
[2022-03-08 22:47] LABS: Differential Indicated SCAN CRITERIA MET
[2022-03-08] MEDS: Oxytocin 30 units/NS 500 ml 30 UNITS/500 ML IV.SOLN 334 UNITS IV (22:51)
--- NOTE | 2022-03-08 23:00 | HP.PCM.OB_ITS ---
[facility] - General General Date of Admission: 03/08/22 Date of Service: 03/08/22 Chief Complaint: labor [facility] Narrative PIPE BONILLA, is a 31-year-old 5 para 2-0-1-2 who presents at 39-4/7 weeks gestation with a EDC of 03/11/2022 presents complaining of contractions and spontaneous rupture of membranes at approximately 7:25 PM. She denied any gross vaginal bleeding. She has had good movement. has been complicated to date by history of hepatitis C. She has a history of depression. She has a history of opioid use disorder and had been on Subutex in the past but was off of this before she conceived. She also has a history of an abnormal Pap smear. Maternal Data Information Final RALPH: 03/11/22 Gestational age: 39 4/7 PFSH [facility] Medical History (Updated 03/08/22 @ 23:[address] Ivonne Abraham MD) Anxiety Depression Hepatitis C History of blood transfusion depression Superficial varicosities Thyroid disorder Home Medications sertraline 50 mg tablet 50 mg PO QDAY depression 03/29/20 [History Last Taken 03/28/20] clonidine HCl 0.1 mg tablet 0.1 mg PO Q12H PRN PRN Restlessness #14 tabs 04/01/20 [Rx Last Taken Unknown] cyclobenzaprine 10 mg tablet 10 mg PO TID PRN PRN muscle spasm #30 tabs 04/01/20 [Rx Last Taken Unknown] hydroxyzine pamoate 50 mg capsule 25 mg PO BID PRN PRN Anxiety #20 caps 04/01/20 [Rx Last Taken Unknown] ibuprofen 600 mg tablet 600 mg PO Q8H PRN PRN Pain Score 1-10/10 04/01/20 [Rx Last Taken Unknown] nicotine 21 mg/24 hr daily transdermal patch 21 mg TRANSDERM. DAILY #30 patches 04/01/20 [Rx Last Taken Unknown] Allergy/AdvReac Type Severity Reaction Status Date / Time No Known Allergies Allergy Verified 03/08/22 20:07 Family History Grandmother Heart disease Surgical History History of D&C [place] teeth removed Social History (Updated 09/27/18 @ 11:38 by Erlin Carmona NP, REGULATORY AFFAIRS COORDINATOR-C) Smoking Status: Former smoker alcohol intake: never substance use type: former substance user what type of physical activity do you participate in: none History Elective abortions Hx Para 2 Spontaneous abortions Hx # Term Pregnancies Ectopic pregnancies Hx # Pregnancies Multiple births # of living children ROS Constitutional Constitutional: Denies fatigue, fever(s) or malaise Eyes Eyes: Denies change in vision ENT HEENT: Denies dizziness or headache(s) Cardiovascular Cardiovascular: Denies chest pain, dyspnea or lightheadedness Respiratory/Chest Respiratory/Chest: Denies cough or dyspnea Gastrointestinal Gastrointestinal: Denies change in bowel habits Genitourinary Genitourinary: Denies burning urination or genital lesions Integumentary Integumentary: Denies rash Neurologic Neurologic: Denies confusion, dizziness, headache(s), numbness or weakness Vital Signs Vital Signs Vital Signs: 03/08/22 19:49 03/08/22 19:49 03/08/22 19:50 Temperature Temperature Source Temporal Pulse Rate 67 Blood Pressure 126/76 H BP Systolic 126 BP Diastolic 76 Pulse Ox 03/08/22 19:50 03/08/22 21:57 03/08/22 21:57 Temperature 97.6 F L Temperature Source Pulse Rate 72 Blood Pressure 107/65 BP Systolic 107 BP Diastolic 65 Pulse Ox 03/08/22 21:57 03/08/22 21:57 03/08/22 21:57 Temperature Temperature Source Temporal Pulse Rate 72 Blood Pressure BP Systolic BP Diastolic Pulse Ox 100 03/08/22 21:57 03/08/22 22:13 03/08/22 22:13 Temperature 97.8 F Temperature Source Pulse Rate 68 Blood Pressure 109/62 BP Systolic 109 BP Diastolic 62 Pulse Ox 03/08/22 22:41 03/08/22 22:41 03/08/22 22:41 Temperature Temperature Source Pulse Rate 85 93 Blood Pressure BP Systolic BP Diastolic Pulse Ox 89 03/08/22 22:41 03/08/22 22:46 03/08/22 22:46 Temperature Temperature Source Pulse Rate 87 Blood Pressure BP Systolic BP Diastolic Pulse Ox 99 97 03/08/22 22:48 03/08/22 22:48 Temperature Temperature Source Pulse Rate 109 H Blood Pressure BP Systolic BP Diastolic Pulse Ox 92 Weight Weight: 85.457 kg Body Mass Index (BMI) 32.3 Physical Exam Const alert and no apparent distress General Appearance: cooperative HEENT normocephalic Resp normal respiratory effort Cardio regular rate GI soft to palpation GI Narrative: gravid, nontender, appropriate for gestational age Extremity no calf tenderness General Extremity: edema Skin no wounds Rashes: No rashes noted Psych activity/motor behavior normal Labs Labs Labs: Blood Type Pending Antibody Screen Pending Hct 35.7 % (37-47) L Hgb 11.3 g/dL (12.0-15.0) L Hep Bs Antigen Non-Reactive (Nonreactive) HIV 1&2 Antibody Non-Reactive (Nonreactive) Miscellaneous Test Assessment & Plan (1) 39 weeks gestation of : PLAN: Patient found to be in active labor. May have epidural, nitrous oxide as needed for pain control. Hepatitis C positive. Toll Testboard Worker was notified. History of chlamydia in the past but not during but was not rescreened in the third trimester. Send urine for chlamydia today. Patient consented verbally for urine tox screen. Estimated weight is less than 4500 g and pelvis is clinically adequate to expect vaginal delivery (2) Spontaneous onset of labor:
--- NOTE | 2022-03-08 23:03 | EX.PCM.OBRPT ---
Assessment & Plan (1) Spontaneous onset of labor: (2) 39 weeks gestation of : (3) (spontaneous vaginal delivery): Maternal Data Information Final RALPH: 03/11/22 Gestational age: 39 4/7 Vaginal Delivery Maternal Presentation Maternal Presentation: Active Labor Operative Information Date of Procedure: 03/08/22 Pre-Operative Diagnosis: labor Post-Operative Diagnosis: same Surgery / Procedure Performed: Spontaneous Vaginal Delivery Type of Anesthesia: None Special Medications: none Drain: - (none) Estimated Blood Loss: 300 Time of Delivery: 22:48 Findings Description of Procedure: A vigorous female infant was delivered DEANNE over an intact perineum. A loose nuchal cord ?1 was easily reduced. The remainder the was delivered with maternal pushing and gentle traction only in less than 15 seconds. The Pitocin infusion was initiated for active management of the third stage. The cord was clamped and cut after 1 minute. The infant was attended to by the waiting nursing staff. The placenta was delivered spontaneously and intact. The cervix and vagina were intact. The perineum was intact. Sponge and needle counts were correct. A vaginal sweep was completed by me. Presentation: DEANNE Amniotic Membrane Rupture Type: Spontaneous Amniotic Fluid Description: Clear Placental Delivery Description: Spontaneous Placenta Disposition: [facility] Cord Vessel Description: 3 Vessels Cord Entanglement: Around neck x 1, loose Nuchal Cord Compression: Without compression Infant A Gender: Female (Naomie) (1 minute): 9 (5 minute): 10 Delayed Cord Clamping: Yes Post Vaginal Delivery Medications Given After Delivery: IV Pitocin Episiotomy Description: None Laceration: None Complication Complications: None
[2022-03-08] MEDS: Ketorolac 30 MG/ML Syringe IV (23:08)
[2022-03-08 23:14] LABS: Differential Comment SCANNED
[2022-03-08] MEDS: Acetaminophen 500 MG Tablet 1000 MG PO (23:48)
[2022-03-09] VITALS (14 sets, daily range): BP systolic 98–132; BP diastolic 55–74; PULSE 54–75; RESP 16–18; TEMP 36.2–36.6; O2SAT 98–99
[2022-03-09 00:48] LABS: Amphetamine Urine VISTA NEGATIVE (<1000 ng/mL); Barbiturate Urine VISTA NEGATIVE (< 200 ng/mL); Benzodiazepine Urine VISTA NEGATIVE (< 200 ng/mL); Cocaine Urine VISTA NEGATIVE (< 300 ng/mL); Ecstacy Urine VISTA NEGATIVE (< 500 ng/mL); Methadone Urine VISTA NEGATIVE (< 300 ng/mL); PCP Urine VISTA NEGATIVE (< 25 ng/mL); THC Urine VISTA POSITIVE (< 50 ng/mL); Vista UDS pH Range 5
--- NOTE | 2022-03-09 00:57 | NURSING ---
RN reviewed pt tox screen results. When asked if marijuana used during , pt reported sometimes, to help with nausea. Pt did not state when last used.
[2022-03-09] MEDS: 0.9% Saline Lock 10 ML Syringe IV (01:21)
[2022-03-09 08:45] LABS: Chlamydia Trachomatis by PCR Negative (Negative); Probe Check PASS; Sample Adequacy Control PASS; Specimen Processing Control PASS
[2022-03-09] MEDS: Acetaminophen 500 MG Tablet 1000 MG PO (12:01)
--- NOTE | 2022-03-09 13:05 | PN.OBGYN_ITS ---
Objective Data Objective Data Vital Signs: Vital Signs Temp Pulse Resp BP Pulse Ox O2 Del Method 97.9 F 60 18 111/68 98 Room Air 03/09/22 11:55 03/09/22 11:56 03/09/22 11:55 03/09/22 11:56 03/09/22 04:31 03/09/22 11:55 Oxygen Delivery Method Room Air Weight: 188 lb 6.4 oz Body Mass Index (BMI) 32.3 Intake & Output: Intake and Output for Last 24 Hours 03/07/22 03/08/22 03/09/22 23:59 23:59 23:59 Intake Total 850.33 / 850.33 333 / 333 Output Total 150 / 150 300 / 300 Balance 700.33 / 700.33 33 / 33 Lab / Micro Data Result Diagrams: 03/08/22 22:10 Labs: Laboratory Results - last 24 hr 03/08/22 19:55: Vag Amniotic Fld Detect Cancelled 03/08/22 20:15: Vag Amniotic Fld Detect POSITIVE H 03/08/22 21:45: WBC Cancelled, Corrected WBC Cancelled, RBC Cancelled, Hgb Cancelled, Hct Cancelled, MCV Cancelled, MCH Cancelled, MCHC Cancelled, RDW Std Deviation Cancelled, RDW Coeff of Eamon Cancelled, Plt Count Cancelled, MPV Cancelled, Immature Gran % (Auto) Cancelled, Neut % (Auto) Cancelled, Lymph % (Auto) Cancelled, Hubbard % (Auto) Cancelled, Eos % (Auto) Cancelled, Baso % (Auto) Cancelled, Absolute Neuts (auto) Cancelled, Absolute Lymphs (auto) Cancelled, Total Counted Cancelled, Neutrophils % (Manual) Cancelled, Band Neutrophils % Cancelled, Lymphocytes % (Manual) Cancelled, Monocytes % (Manual) Cancelled, Eosinophils % (Manual) Cancelled, Basophils % (Manual) Cancelled, Metamyelocytes % Cancelled, Myelocytes % Cancelled, Promyelocytes % Cancelled, Blast Cells % Cancelled, Plasma Cell % (Manual) Cancelled, Other Cells % Cancelled, Nucleated RBC % Cancelled, Nucleated RBCs/100 WBC Cancelled, Differential Comment Cancelled, Diff Path Review Cancelled, Hypersegmented Neuts Cancelled, Atypical Lymphocytes Cancelled, Reactive Lymphocytes Cancelled, Smudge Cells Cancelled, Toxic Granulation Cancelled, Toxic Vacuolation Cancelled, Dohle Bodies Cancelled, Anupam Rods Cancelled, Platelet Estimate Cancelled, Plt Morphology Comment Cancelled, RBC Morphology Cancelled, Polychromasia Cancelled, Hypochromasia Cancelled, Poikilocytosis Cancelled, Basophilic Stippling Cancelled, Anisocytosis Cancelled, Microcytosis Cancelled, Macrocytosis Cancelled, Spherocytes Cancelled, Sickle Cells Cancelled, Target Cells Cancelled, Tear Drop Cells Cancelled, Ovalocytes Cancelled, Stomatocytes Cancelled, Rosales-Weirton Bodies Cancelled, Alpine Cells Cancelled, Bite Cells Can celled, Crenated Cell Cancelled, Acanthocytes (Spur) Cancelled, Rouleaux Cancelled, Schistocytes Cancelled 03/08/22 22:10: Blood Type A NEGATIVE, Antibody Screen NEGATIVE 03/08/22 22:10: WBC 10.7, RBC 4.05 L, Hgb 11.3 L, Hct 35.7 L, MCV 88.1, MCH 27.9, MCHC 31.7 L, RDW Std Deviation 45.8 H, RDW Coeff of Eamon 14.3, Plt Count 247, MPV 10.6, Immature Gran % (Auto) 0.500, Neut % (Auto) 84.7 H, Lymph % (Aut o) 10.4 L, Hubbard % (Auto) 4.3, Eos % (Auto) 0.0, Baso % (Auto) 0.1, Absolute N euts (auto) 9.0 H, Absolute Lymphs (auto) 1.11, Nucleated RBC % 0, Differential Comment SCANNED 03/08/22 23:45: Chlam trachomat DNA PCR Negative 03/08/22 23:45: Urine Opiates Screen NEGATIVE, Urine Methadone Screen NEGATIVE, Ur Barbiturates Screen NEGATIVE, Ur Phencyclidine Scrn NEGATIVE, Ur Amphetamines Screen NEGATIVE, MDMA (Ecstasy) Screen NEGATIVE, U Benzodiazepines Scrn NEGATIVE, Urine Cocaine Screen NEGATIVE, U Cannabinoids Screen POSITIVE H, Ur Drug Screen Comment Micro: Microbiology 03/08/22 21:13 Nasal Secretion SARS-CoV-2 Antigen (Rapid) - Final Physical Exam Const alert, oriented x3 and no apparent distress HEENT normocephalic GI soft to palpation, non-tender and non-distended GI Narrative: fundus firm, mid & below umbilicus Extremity normal to inspection and no calf tenderness Assessment & Plan (1) (spontaneous vaginal delivery): COMMENT: PPD#1 PLAN: Routine care Encouraged Hepatitis C
[2022-03-09] MEDS: Ibuprofen 600 MG Tablet PO (20:31)
[2022-03-10 01:09] VITALS: BP 118/55; PULSE 59; RESP 16; TEMP 36.6; O2SAT 96
[2022-03-10 08:10] VITALS: BP 104/61; PULSE 64; RESP 16; TEMP 36.6
--- NOTE | 2022-03-10 08:43 | DCINST_ITS ---
Discharge Instructions Procedure Vaginal Delivery Diet Discharge Diet: No restrictions Activity May resume sexual activity in: 6-8 weeks Dressing / Incision Call your doctor if you observe: Fever of 101 or Higher, Inability to urinate, Using more than 1 pad per hour and Uncontrolled pain Follow Up Care Please Follow Up With: Heidi Carpenter MD When: 1-2 weeks post and again at 6 weeks post . [phone] Test Results: Test results from this visit will be discussed in further detail at your follow- up appointment, if applicable. Discharge Plan Admission Admit Date/Time: 03/08/22 20:30 Attending Provider: Ivonne Abraham Primary Care Provider: Care Physician,Tigist Primary Discharge Orders/Prescriptions Prescriptions: New acetaminophen 500 mg Tablet 1,000 mg PO Q6H PRN PRN (Reason: Pain 1-10 Or Fever) Qty: 0 0RF ibuprofen 600 mg Tablet 600 mg PO Q6H PRN PRN (Reason: Pain Score 1-3) Qty: 0 0RF Continued sertraline 50 MG tablet 50 mg PO QDAY lamotrigine [Lamictal] 25 mg Tablet 25 mg PO QODAY Discontinued famotidine [Pepcid] 20 mg Tablet 20 mg PO DAILY Referrals / Follow Up: Care Physician,No Primary [Primary Care Provider] - Disposition Disposition (needs filled in before D/C Order can be placed): Home, Self Care
--- NOTE | 2022-03-10 08:43 | PCM.PROGNOTE ---
Subjective Subjective patient seen at bedside, doing well. Patient reports good pain control. lochia mild. Objective Data Objective Data Vital Signs: Vital Signs Temp Pulse Resp BP Pulse Ox O2 Del Method 97.9 F 64 16 104/61 96 Room Air 03/10/22 08:10 03/10/22 08:10 03/10/22 08:10 03/10/22 08:10 03/10/22 01:09 03/10/22 08:10 Oxygen Delivery Method Room Air Weight: 85.457 kg Body Mass Index (BMI) 32.3 Intake & Output: Intake and Output for Last 24 Hours 03/08/22 03/09/22 03/10/22 23:59 23:59 23:59 Intake Total 850.33 / 850.33 333 / 333 Output Total 150 / 150 300 / 300 Balance 700.33 / 700.33 33 / 33 Lab / Micro Data Result Diagrams: 03/08/22 22:10 Labs: Laboratory Results - last 24 hr 03/08/22 23:45: Chlam trachomat DNA PCR Negative Micro: Microbiology 03/08/22 21:13 Nasal Secretion SARS-CoV-2 Antigen (Rapid) - Final Physical Exam Const alert and oriented x3 General Appearance: cooperative HEENT normocephalic Neck General: normal visual inspection GI soft to palpation and non-distended GI Narrative: Fundus firm Extremity normal to inspection and no calf tenderness Skin no rashes or lesions noted Neuro oriented x3 and CN's II-XII intact bilaterally Psych mental status grossly normal Assessment & Plan Assessment/Plan (1) (spontaneous vaginal delivery): PLAN: PPD#2 , Doing well Routine care pain mgmt ambulation dc home
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
[2022-03-10 13:21] VITALS: BP 134/71; PULSE 77; RESP 16; TEMP 36.6
--- NOTE | 2022-03-21 10:46 | CM.ED ---
Social Work Note SW received letter from [facility] stating the referral was not accepted for assessment/investigation. Wendie Murillo OUTDOOR EDUCATION TEACHER, SOCK KNITTING MACHINE OPERATOR
== END 2022-03-10 13:30 | disposition home or self-care (01) | DRG 560 ==
LOC: WPOUT 20:33 → WP 20:33
PROVIDERS: Admitting Provider Obstetrics & Gynecology; Visit Provider Obstetrics & Gynecology
DX: O69.81X0 Labor and delivery complicated by cord around neck, without compression, not applicable or unspecified (principal); Z37.0 Single live birth; E07.9 Disorder of thyroid, unspecified; O99.284 Endocrine, nutritional and metabolic diseases complicating childbirth; Z20.822 Contact with and (suspected) exposure to COVID-19; Z3A.39 39 weeks gestation of pregnancy; Z87.891 Personal history of nicotine dependence; Z86.19 Personal history of other infectious and parasitic diseases
CPT/HCPCS: 36415; 59025; 59050; 80307; 84112; 85025; 86850; 86900; 86901; 87491; 87811; 99218; J7120; A4216; G0378